=== PATIENT | male | born 1940 | race Caucasian/White ===

== ENCOUNTER 2016-07-05 13:31 | Inpatient (IN) | payer OTHER, SELFPAY ==
--- NOTE | ~2016-07-05 | CN ---
Consultation Report [facility] [address] [place]. [address] NAME: CELINA CANAS : 40 STATUS : ADM IN PAT#: [id number] AGE: 75 ADM/REG DATE : 07/05/16 MR#: [id number] REPORT SERV DATE: 07/05/16 DICTATED BY: LAILA PARRA DATE: 07/05/16 REPORT STATUS : Draft TRANSCRIBED BY: MODL DATE: 07/05/16 MEDICAL CONSULTATION NOTE DATE OF CONSULTATION: 07/05/2016 REASON FOR CONSULTATION: Diabetes, uncontrolled. HISTORY OF PRESENT ILLNESS: This is a 75-year-old white male, who has had over 10 years of insulin experience with Dr. Gal Begum, primary care physician. He had blood sugars that were in the 250 to 300 range previously, but recently has been controlled and that were in 94, 106, and 130 range with the addition of Toujeo by Dr. Begum. He has a left diabetic foot ulcer. He has been [facility] by Dr. Tony Elder. He is now being admitted with osteomyelitis and left foot ulcer with planned surgery on that left side after initial treatment with antibiotics. He has some difficulty feeling in his feet, but it is improved with better blood sugar control over the last six months. He has had no heart history, that he sees Dr. Salguero and was on multiple medications in the past. PAST MEDICAL HISTORY: Longstanding history of diabetes. HOME MEDICATIONS: Include the following: Spironolactone 50 mg p.o. b.i.d., Cozaar 100 mg p.o. daily, Zoloft 100 mg p.o. daily, hydrochlorothiazide 50 mg p.o. daily, aspirin 81 mg p.o. daily, potassium 10 mEq p.o. daily, omeprazole 40 p.o. daily, glipizide 10 mg p.o. daily, sertraline 100 mg p.o. daily, oxycodone, Amitiza, Ambien. He does have a history of chronic kidney disease. No laboratory work has been drawn yet after admission. SOCIAL HISTORY: He is , second marriage, lives with present . No alcohol or tobacco. He had attended [facility] in the past. Lives in [place]. 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 He grew up in [place], [place]. FAMILY HISTORY: He has two children alive and well. He had 6 brothers and sisters. One sister with diabetes. His father had diabetes in his old age above 70. REVIEW OF SYSTEMS: He has had no chest pain or shortness of breath. No fever, chills, night sweats, melena, hematemesis, nausea, vomiting, or diarrhea. Consultation Report [facility] [address] [place]. [address] NAME: CELINA CANAS : 40 STATUS : ADM IN PAT#: [id number] AGE: 75 ADM/REG DATE : 07/05/16 MR#: [id number] REPORT SERV DATE: 07/05/16 DICTATED BY: LAILA PARRA DATE: 07/05/16 REPORT STATUS : Draft TRANSCRIBED BY: VIANCA DATE: 07/05/16 He has left foot ulcers worsening and now apparently has some osteomyelitis left foot according to Dr. Elder's examination. The remainder of the review of systems are negative. PHYSICAL EXAMINATION: VITAL SIGNS: Blood pressure was 140/70 with a heart rate 88, respiratory rate 16, afebrile. HEENT: EOMI. Sclerae clear. Conjunctivae pink. NECK: No bruit. No JVD. CHEST: Clear. HEART: Regular S1, S2 without murmur, gallop, or click. ABDOMEN: Obese, protuberant nontender. Bowel sounds positive. EXTREMITIES: Have 2+ pitting edema bilaterally. No distal pulses are palpable at the dorsalis pedis and posterior tibial. The left foot has warmth in the lateral half of it along with draining ulcer on the left side with serosanguineous drainage from the open wound. SKIN: Redness of the left foot. LYMPHATICS: There is no adenopathy palpable. LABORATORY: Laboratory has been ordered but is not available yet. ASSESSMENT: 1. Diabetes type 2, uncontrolled. The patient does have some significant insulin resistance. He has had been on Toujeo 330 units subcu b.i.d., has been cut back to once a day with his weight loss recently. He is also on Humalog 5 units before each meals t.i.d. to bring blood sugar down to present level. At present blood sugar checks at 68 and has not eaten since breakfast. We will go ahead and feed right now. 2. Diabetic foot ulcer, left side. 3. Osteomyelitis. 4. Chronic kidney disease. We will check a BMP. 5. Obesity. 6. Question compliance with diet. The patient does have evidence of obesity, but he is losing some weight according to the daughter. We will see if we can control with less insulin, we will try to drop Levemir to 100 units subcu daily, and use Humalog before each meals to control blood sugar holding if the blood sugars too low or the patient is n.p.o. 7. Dr. Elder started the other medication back for his depression, hypertension, Gastroesophageal reflux disease. I will hold the glipizide for now and we may need to adjust the oral anti-hypoglycemic agents. I will discontinue the glipizide for now and use insulin alone. DB/QASIML Consultation Report [address] [place]. [address] NAME: CELINA CANAS : 40 STATUS : ADM IN PAT#: [id number] AGE: 75 ADM/REG DATE : 07/05/16 MR#: [id number] REPORT SERV DATE: 07/05/16 DICTATED BY: LAILA PARRA DATE: 07/05/16 REPORT STATUS : Draft TRANSCRIBED BY: MODL DATE: 07/05/16 Laila Parra M.D. / [id number] CC: Lourdes Mandujano M.D. James Hoback Jr., M.D. Richard L Yap, M.D. Cristina Florea, M.D.
--- NOTE | ~2016-07-05 | DS ---
Discharge Summary [facility] [address] [place]. [address] NAME: CELINA CANAS : 40 STATUS : DIS IN PAT#: [id number] AGE: 75 ADM/REG DATE : 07/05/16 MR#: [id number] REPORT SERV DATE: 07/22/16 DICTATED BY: TONY JOHNSON DATE: 07/21/16 REPORT STATUS : Draft TRANSCRIBED BY: VIANCA DATE: 07/21/16 Data Collection from hospitalization DISCHARGE DIAGNOSES: 1. Left fifth toe diabetic foot ulcer with cellulitis and osteomyelitis. 2. Type 2 insulin-dependent diabetes with foot ulcer. 3. 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 4. Hypertension. 5. Obstructive sleep apnea. 6. Chronic obstructive pulmonary disease. 7. Morbid obesity. 8. Anemia. 9. Gastroesophageal reflux disease. 10.Neuropathy. 11.Chronic pain. CONSULTATIONS: Dr. Jose Jc. Dr. Moises Bunn. PROCEDURES: Left yyfea-ual-aivv amputation, 07/08/2016. PATHOLOGY: Left leg below-knee amputation-skin and soft tissue, acute and chronic inflammation with abscess formation. Bone-acute osteomyelitis. Arteries (tibioperoneal) occlusive atherosclerosis. DISCHARGE MEDICATIONS: Vitamin C 1000 mg every morning, aspirin 81 mg daily, Lipitor 40 mg at bedtime, vitamin B12 100 mcg daily, ferrous sulfate 325 mg daily, hydrochlorothiazide 25 mg daily, Toujeo as instructed, NovoLog injection insulin 15 units subcutaneously three times a day, Cozaar 100 mg daily, fish oil 2000 mg daily, Singulair 10 mg at bedtime, Prilosec 40 mg every morning, Klor-Con 20 mEq daily, Senokot 8.6 mg every morning, Zoloft 100 mg daily and 50 mg at bedtime, Roxicodone 10 mg as instructed, Levemir 32 units subcutaneously daily, ProAir two puffs via inhaler as needed, Tagamet 200 mg twice a day as needed, Zofran 4-8 mg every eight hours as needed, Percocet 10/325 one tablet four times a day as needed, Refresh one drop daily as needed, Aldactone 50 mg daily, Ativan 0.5 mg at bedtime, Glucotrol 10 mg twice a day. CONDITION ON DISCHARGE: Stable. DISPOSITION: The patient was discharged to [facility] on an 1800-calorie diabetic diet with activities as instructed. He would follow up with me at the [facility], 07/16/2016. HOSPITAL COURSE: This is a 75-year-old man, who presented with a history of left lateral fifth metatarsal head diabetic foot ulcer since the end of 2015. He had been admitted on 05/23/2016 with cellulitis and this was debrided at the bedside. At that time, his hemoglobin A1c was 7.3. He has a history of uncontrolled type 2 diabetes mellitus, obstructive sleep apnea with CPAP and stage 3 chronic kidney disease. He is morbidly obese and has hypertension. He had undergone IV antibiotics as an outpatient in the [facility]. He was found to have involvement of the deep tissues and then referred for cardiology Discharge Summary [address] [address] NAME: CELINA CANAS : 40 STATUS : DIS IN PAT#: [id number] AGE: 75 ADM/REG DATE : 07/05/16 MR#: [id number] REPORT SERV DATE: 07/22/16 DICTATED BY: TONY JOHNSON DATE: 07/21/16 REPORT STATUS : Draft TRANSCRIBED BY: VIANCA DATE: 07/21/16 evaluation for possible hyperbaric oxygen and was deemed not medically fit from a cardiac standpoint. On evaluation in the clinic, the patient was found to have increasing redness of his foot. Upon debridement, he was found to have a large amount of necrotic bone on the fifth metatarsal distally. It was excised sharply with rongeurs and scissors. Bone culture and histology were obtained. The patient was found to have MRSA and cultures in the past. The possible need for lfgxd-hpy-qhxs amputation was discussed with the patient. He was admitted to the hospital at this time for further evaluation and treatment. Upon admission, IV antibiotics were started. He was seen in consultation by Dr. Jose Jc regarding his uncontrolled diabetes. He has had diabetes for over 10 years. He has a left diabetic foot ulcer. He had had some difficulty feeling his feet, but it had improved with better blood sugar control over the last six months. The patient does have some significant insulin resistance. He had been on Toujeo. He was also on Humalog. We questioned compliance with his diet as he does have evidence of obesity, but he was losing some weight according to his daughter. Glipizide was discontinued for now. We were going to use insulin alone. He was seen by Dr. Moises Bunn for evaluation and treatment of diabetic foot infection. The patient had been wearing an Unna boot. The patient has diabetic foot infection stemming from a chronic ulcer. It was likely all soft tissue once again. Since if there was osteomyelitis, he would have expected that to have cleared up before now. He felt this could be the same organism from May 2016, but almost certainly it would be polymicrobial. He was going to follow up the cultures that were obtained earlier in the day. He felt this would be a reliable culture. He would be covered empirically with vancomycin and Zosyn pending those cultures. Following day, he had no new complaints. His white count had decreased to 11.5. IV antibiotics were continued. Plans were being made to proceed with surgical intervention. He said he felt weak and tired. He does have a history of chronic pain syndrome. Wound culture had revealed MRSA and diphtheroids. Blood cultures were negative. Plans were being made to proceed with amputation. On 07/08/2016, he was taken to the operating room, where he underwent the above mentioned procedure. He tolerated this well and there were no complications. On postop day #1, the patient reported as pain being a 6-7/10. He had had a restless night. He was on the PHARMACY SPECIALIST. Lovenox was being given for DVT prophylaxis. Proton pump inhibitor was continued. Creatinine level was stable. Blood cultures remained negative. White count was 11. He was evaluated by Occupational and Physical Therapy. On postop day 2, his dressings were intact. Postoperative pain was controlled. Over the next couple of days, he continued to progress. Discharge planning was performed. Lovenox was held. His dressings were changed. On 07/13/2016, he had no new complaints. He was tolerating oral intake. He remained afebrile. Discharge instructions were given. Due to his improved and stable condition, he was discharged to [facility] with the above-stated instructions. Information collected by: Kirstin Nunez I submit the above information as my discharge summary. MILLIE/VIANCA Discharge Summary [address] [place]. [address] NAME: CELINA CANAS : 40 STATUS : DIS IN PAT#: [id number] AGE: 75 ADM/REG DATE : 07/05/16 MR#: [id number] REPORT SERV DATE: 07/22/16 DICTATED BY: TONY JOHNSON DATE: 07/21/16 REPORT STATUS : Draft TRANSCRIBED BY: MODL DATE: 07/21/16 Tony Johnson M.D. / [id number] CC: Lourdes Mandujano M.D. Mark Anderson, M.D. [facility]
--- NOTE | ~2016-07-05 | CN ---
Consultation Report [facility] [address] [place]. [address] NAME: CELINA CANAS : 40 STATUS : ADM IN [facility]#: [id number] AGE: 75 ADM/REG DATE : 07/05/16 MR#: [id number] REPORT SERV DATE: 07/05/16 DICTATED BY: NAIF BRUCE DATE: 07/05/16 REPORT STATUS : Draft TRANSCRIBED BY: MODL DATE: 07/05/16 INFECTIOUS DISEASE CONSULT DATE OF CONSULTATION: REASON FOR REFERRAL: Evaluation and treatment of diabetic foot infection. HISTORY OF PRESENT ILLNESS: The patient is a 75-year-old male. He has a history of hypertension, diabetes mellitus, peripheral neuropathy in his lower extremities, obstructive sleep apnea, gastroesophageal reflux disease. He was admitted here in 05/[address] [facility] on 05/23/2016. He was evaluated by Dr. Elder. An MRI showed no evidence of osteomyelitis, so a bedside debridement was done. He was treated at that time using vancomycin and Zosyn. After debridement, he was stable to go home on oral antibiotics and with cultures pending was sent home on Augmentin. In reviewing those cultures, it appears they grew methicillin-resistant Staph aureus and Pseudomonas to which the Augmentin of course would not work. The patient states so that his foot got better after the debridement. He has been followed by Dr. Elder in the clinic since then and the wound improved, began closing, and was improving. Overall, he had been wearing an Unna boot on it, and when that was taken off earlier today though, he had new redness, swelling, warmth, and signs of rapidly advancing infection. He has not felt well the last couple of days, but had no jonathan fevers or chills. He denies any trauma to the wound other than what it has been done in the [facility], and there have been no new environmental exposures. He has not been on any antibiotics since the end of 05/2016. PAST MEDICAL HISTORY: Otherwise unremarkable. MEDICATIONS: As mentioned above. ALLERGIES: HE HAS NO KNOWN ANTIMICROBIAL ALLERGIES. 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 Does not smoke, has no history of alcohol or substance abuse. He is and his and daughter are in the room with him. FAMILY HISTORY: Noncontributory. PHYSICAL EXAMINATION: GENERAL: A tired-appearing, elderly male, in no acute distress. He is alert and oriented x3. VITAL SIGNS: His temperature here and other vital signs are pending and not recorded yet. His weight is 114 kg. HEENT: Sclerae clear. No oral lesions. NECK: Supple. LUNGS: Clear anteriorly. HEART: Regular rate and rhythm. Consultation Report [facility] [address] [address] NAME: CELINA CANAS : 40 STATUS : ADM IN [facility]#: [id number] AGE: 75 ADM/REG DATE : 07/05/16 MR#: [id number] REPORT SERV DATE: 07/05/16 DICTATED BY: NAIF BRUCE DATE: 07/05/16 REPORT STATUS : Draft TRANSCRIBED BY: VIANCA DATE: 07/05/16 ABDOMEN: Soft, nontender. Positive bowel sounds. EXTREMITIES: The extremity exam, nothing acute on the right. On the left, it is red, all stemming from an eschar ulcer that is 2 to 3 cm x 1 cm under his fifth metatarsal head with redness extending up to the ankle. There is warmth. There is no purulent drainage or odor. LABORATORY DATA: Laboratories are just now being drawn. IMPRESSION: Diabetic foot infection stemming from a chronic ulcer. It is likely all soft tissue once again since if there was osteomyelitis I would have expected that to have flared up before now. They could be the same organisms from 05/2016, but almost certainly it is polymicrobial. RECOMMENDATIONS: 1. We will follow up the cultures that were sent earlier today. This is a bone culture done off antibiotics by Dr. Elder, so it should be a reliable culture. 2. Cover empirically with vancomycin and Zosyn pending those cultures. 3. Surgery per Dr. Elder. 4. I will follow the patient with you. I appreciate very much your consulting on this patient. DIPESH/VIANCA Naif Bruce M.D. / [id number] CC: Lourdes Mandujano M.D.
--- NOTE | ~2016-07-05 | OP ---
Record Of Operation [facility] [address] [place]. [address] NAME: CELINA CANAS : 40 STATUS : ADM IN PAT#: [id number] AGE: 75 ADM/REG DATE : 07/05/16 MR#: [id number] REPORT SERV DATE: 07/08/16 DICTATED BY: TONY JOHNSON DATE: 07/08/16 REPORT STATUS : Draft TRANSCRIBED BY: MODL DATE: 07/08/16 DATE OF PROCEDURE: 07/08/2016 PREOPERATIVE DIAGNOSES: 1. Left lateral fifth metatarsal head diabetic foot ulcer with cellulitis and osteomyelitis with failure of outpatient therapy. 2. Diabetes mellitus type 2 insulin dependent with foot ulcer. 3. Chronic obstructive pulmonary disease. 4. Chronic kidney disease, stage 2/3. 5. Morbid obesity. 6. Obstructive sleep apnea with continuous positive airway pressure. POSTOPERATIVE DIAGNOSES: 1. Left lateral fifth metatarsal head diabetic foot ulcer with cellulitis and osteomyelitis with failure of outpatient therapy. 2. Diabetes mellitus type 2 insulin dependent with foot ulcer. 3. Chronic obstructive pulmonary disease. 4. Chronic kidney disease, stage 2/3. 5. Morbid obesity. 6. Obstructive sleep apnea with continuous positive airway pressure. PROCEDURE: Left bgjdp-oep-dyrv amputation. ANESTHESIA: General. SURGEON: Tony Johnson M.D. HEAD INSPECTOR AND CENTER MARKER: Scott. COMPLICATIONS: None. DRAINS: None. ESTIMATED BLOOD LOSS: 50 mL. FINDINGS: The patient was noted to have a left lateral fifth metatarsal head diabetic foot ulcer with extension proximally to the proximal fifth metatarsal head with persistent erythema and edema of the left forefoot and 2+ pitting edema of the ankle. In light of the preoperative findings with comorbidities, the decision was made to proceed with a left below the-knee amputation. OPERATIVE TECHNIQUE: The patient was brought to the operating room and placed on the table in supine position. He had preoperative IV antibiotics. He had sequential hose in place. He voided prior to the procedure. He underwent general endotracheal anesthesia and was prepped and draped in a sterile fashion and time-out was completed. The patient had his leg elevated and a tourniquet was inflated to 350 mmHg. The tourniquet time was 25 minutes. Record Of Operation [facility] [address] [place]. [address] NAME: CELINA CANAS : 40 STATUS : ADM IN PAT#: [id number] AGE: 75 ADM/REG DATE : 07/05/16 MR#: [id number] REPORT SERV DATE: 07/08/16 DICTATED BY: TONY JOHNSON DATE: 07/08/16 REPORT STATUS : Draft TRANSCRIBED BY: VIANCA DATE: 07/08/16 The incision was then made with proposed skin incision site for a 12 cm bone length from the tibial tuberosity. The incision was made after being marked with a long posterior flap with a 15 blade knife. The incisions were made circumferentially deep into the subcutaneous tissue. Electrocautery was then used to dissect circumferentially to the level of fascia. The posterior flap was then created preserving the gastrocs and soleus muscles on the left posterior leg along with the skin flap posteriorly. The rest of the leg muscle was divided using electrocautery with the named vessels as they were encountered being clamped, divided, and ligated. The nerves were cut on stretch prior to tying the vasculature. The entire soft tissue was excised and Gigli saw was then used to divide the tibia and then the fibula approximately 1 cm proximal. The saw was used to bevel the anterior edge of the tibia and the rasp was used to smooth out the rest of the bone edges circumferentially on the tibia and fibula. The leg was then thoroughly irrigated. The posterior flap was then secured to the anterior fascia covering the bone with interrupted 2-0 Vicryl sutures. The subcutaneous tissues were then reapproximated using interrupted 2-0 Vicryl sutures. The skin edges were reapproximated using a running 2-0 subcuticular Monocryl sutures. Aquacel Ag surgical dressing followed by Kerlix wrap and Sagar wrap was then applied. He tolerated the procedure well and was extubated and taken to the recovery room in stable condition. All sponge and needle counts were reported correct. YVONNE/VIANCA Tony Johnson M.D. / [id number] CC: Lourdes Mandujano M.D.
[~2016-07-05 13:31] MED LIST: ACTOS45 PO; ADALAT CC60 MG PO; AMB5 PO; AMITIZA24 PO; ASAB PO; ATEN50 PO; ATV.5 PO; ATV1 PO; AUG875 PO; AVAPRO300 MG PO; B12100T PO; BEN25; BIST PO; COZAAR100 MG PO; DEMA100 PO; EXCEDRIN EXTRA1 EACH PO; FERROUS SULF325 M1 PO; FISH-EPA1000 MG PO; GLUCOTRO10 PO; GLUCOV5 PO; HUMULIN R1 ML SC; HYDROCHLOROT50 MG PO; IRON325 MG PO; KLOR-CON M2020 MEQ PO; LIPITOR40 PO; PENICILLN VK500 MG PO; PERCOCET1 TA2 PO; PHENADOZ12.5 MG RE; PRAVACHOL40 MG PO; PRILOSEC40 MG PO; REFRES1 OPH; SENTAB PO; SINGULAIR1 PO; SPIRO25 PO; SPIRO50 PO; TAGAMET 200 MG200 MG PO; TOUJEO SC; VENTOLIN HFA INH; VITC500 PO; WELLXL300 PO; X25 PO; ZAROX2.5B PO; ZOFRAN4 PO; ZOL100 PO; ZOL50 PO
[2016-07-05 16:00] LABS: HEMATOCRIT 36.1 % (40.0-51.0); HEMOGLOBIN 11.6 g/dL (13.6-17.8); MANUAL DIFF YES %; MEAN CORPUS HGB CONC 32.1 g/dL (32.0-36.0); MEAN CORPUSCULAR HEMOGLOB 26.5 pg (26.0-34.0); MEAN CORPUSCULAR VOLUME 82.6 fL (80-100); MEAN PLATELET VOLUME 9.2 fL (9.2-13.0); PLATELET COUNT 439 10/3/uL (150-400); RED CELL COUNT 4.37 10/6/uL (4.7-6.1); WHITE BLOOD CELLS 11.5 10/3/uL (4.5-10.5)
[2016-07-05 16:06] LABS: A/G RATIO 0.6 (0.7-1.9); ALKALINE PHOSPHATASE 80 U/L (45-117); CALCIUM, SERUM 9.5 MG/DL (8.5-10.4); CHLORIDE, SERUM 106 MMOL/L (96-112); CREATININE 1.49 MG/DL (0.70-1.30); GFR AFRICAN AMERICAN 52 ML/MIN (>=60); GFR NON AFRICAN AMERICAN 45 ML/MIN (>=60); GLOBULIN 5.1 G/DL (2.5-4.1); GLUCOSE, SERUM 89 MG/DL (60-99); SGOT(AST) 15 U/L (5-40); SGPT(ALT) 22 U/L (5-65); SODIUM, SERUM 136 MMOL/L (135-148); TOTAL BILIRUBIN 0.3 MG/DL (0-1.2); TOTAL PROTEIN 8.1 G/DL (6.0-8.5)
[2016-07-05 16:10] LABS: BUN (BLOOD UREA NITROGEN) 29 MG/DL (6-23); CO2 (CARBON DIOXIDE) 19 MMOL/L (24-34); POTASSIUM, SERUM 4.7 MMOL/L (3.5-5.3)
[2016-07-05 17:05] LABS: BASOPHILS 3 %; BASOPHILS ABSOLUTE (CALC) 0.35 10/3/uL (0.0-0.16); EOSINOPHILS 4 %; EOSINOPHILS ABSOLUTE (CALC) 0.46 10/3/uL (0.0-0.53); LYMPHOCYTES 9 %; LYMPHOCYTES ABSOLUTE (CALC) 1.04 10/3/uL (0.67-4.30); MONOCYTES 1 %; MONOCYTES ABSOLUTE (CALC) 0.12 10/3/uL (0.21-1.20); NEUTROPHILS ABSOLUTE (CALC) 9.55 10/3/uL (2.02-8.40); PLATELET ESTIMATE SLT INC (ADEQUATE); RBC MORPHOLOGY NORM (NORMAL); SEGMENTED NEUTROPHIL (0) 83 %; TOTAL NUCLEATED CELLS 100
[2016-07-05 19:36] LABS: PROCALCITONIN 0.11 ng/mL (<0.5)
[2016-07-05] MEDS ORDERED: X25 PO (21:41)
[2016-07-05] MEDS ORDERED: VITC500 PO (21:41)
[2016-07-05] MEDS ORDERED: PROAIR HFA INH (21:41)
[2016-07-05] MEDS ORDERED: ASAB PO (21:42)
[2016-07-05] MEDS ORDERED: TAGAMET 200 MG200 MG PO (21:42)
[2016-07-05] MEDS ORDERED: LIPITOR40 PO (21:42)
[2016-07-05] MEDS ORDERED: FERROUS SULF325 M1 PO (21:43)
[2016-07-05] MEDS ORDERED: B12100T PO (21:43)
[2016-07-05] MEDS ORDERED: TOUJEO SC (21:43)
[2016-07-05] MEDS ORDERED: PRILOSEC40 MG PO (21:44)
[2016-07-05] MEDS ORDERED: FISH-EPA1000 MG PO (21:44)
[2016-07-05] MEDS ORDERED: NOVOLOG SC (21:44)
[2016-07-05] MEDS ORDERED: ZOFRAN4 PO (21:45)
[2016-07-05] MEDS ORDERED: KLOR-CON M2020 MEQ PO (21:46)
[2016-07-05] MEDS ORDERED: PERCOCET 10/3251 TAB PO (21:46)
[2016-07-05] MEDS ORDERED: SENTAB PO (21:46)
[2016-07-05] MEDS ORDERED: REFRESH OPH (21:47)
[2016-07-05] MEDS ORDERED: ZOL50 PO (21:47)
[2016-07-05] MEDS ORDERED: ZOL100 PO (21:47)
[2016-07-05] MEDS ORDERED: TOPAMAX25 PO (21:48)
[2016-07-05] MEDS ORDERED: DEMA100 PO (21:48)
[2016-07-05] MEDS ORDERED: *UNABLE1 (21:49)
[2016-07-05] MEDS ORDERED: METOLAZONE 2.5 MG (21:49)
[2016-07-06 07:04] LABS: HEMOGLOBIN 9.9 g/dL (13.6-17.8); MEAN CORPUS HGB CONC 31.7 g/dL (32.0-36.0); MEAN CORPUSCULAR HEMOGLOB 25.6 pg (26.0-34.0); MEAN CORPUSCULAR VOLUME 80.8 fL (80-100); MEAN PLATELET VOLUME 9.1 fL (9.2-13.0); PLATELET COUNT 386 10/3/uL (150-400); RBC DISTRIBUTION WIDTH 15.3 % (12.0-16.0); RED CELL COUNT 3.86 10/6/uL (4.7-6.1); WHITE BLOOD CELLS 8.1 10/3/uL (4.5-10.5)
[2016-07-06 07:05] LABS: HEMATOCRIT 31.2 % (40.0-51.0); MANUAL DIFF YES %
[2016-07-06 07:17] LABS: CALCIUM, SERUM 8.9 MG/DL (8.5-10.4); CHLORIDE, SERUM 105 MMOL/L (96-112); CO2 (CARBON DIOXIDE) 19 MMOL/L (24-34); CREATININE 1.17 MG/DL (0.70-1.30); GFR AFRICAN AMERICAN 70 ML/MIN (>=60); GFR NON AFRICAN AMERICAN 61 ML/MIN (>=60); POTASSIUM, SERUM 4.1 MMOL/L (3.5-5.3); SODIUM, SERUM 138 MMOL/L (135-148)
[2016-07-06 07:19] LABS: BUN (BLOOD UREA NITROGEN) 20 MG/DL (6-23); GLUCOSE, SERUM 126 MG/DL (60-99)
[2016-07-06 07:41] LABS: BASOPHILS 2 %; BASOPHILS ABSOLUTE (CALC) 0.16 10/3/uL (0.0-0.16); EOSINOPHILS 2 %; EOSINOPHILS ABSOLUTE (CALC) 0.16 10/3/uL (0.0-0.53); LYMPHOCYTES 7 %; LYMPHOCYTES ABSOLUTE (CALC) 0.57 10/3/uL (0.67-4.30); MONOCYTES 3 %; MONOCYTES ABSOLUTE (CALC) 0.24 10/3/uL (0.21-1.20); NEUTROPHILS ABSOLUTE (CALC) 6.97 10/3/uL (2.02-8.40); PLATELET ESTIMATE ADQ (ADEQUATE); SEGMENTED NEUTROPHIL (0) 86 %; TOTAL NUCLEATED CELLS 100
[2016-07-06 07:42] LABS: POLYCHROMASIA 1+ (2-5/OIF) (0-1/OIF); TOXIC GRANULATION 1+
[2016-07-06] MEDS ORDERED: SINGULAIR1 PO (18:44)
[2016-07-06] MEDS ORDERED: SPIRO50 PO (18:44)
[2016-07-06] MEDS ORDERED: HYDROCHLOROT50 MG PO (18:44)
[2016-07-06] MEDS ORDERED: ATV.5 PO (18:45)
[2016-07-06] MEDS ORDERED: GLUCOTRO10 PO (18:47)
[2016-07-07 07:17] LABS: CALCIUM, SERUM 8.6 MG/DL (8.5-10.4); CHLORIDE, SERUM 108 MMOL/L (96-112); CO2 (CARBON DIOXIDE) 21 MMOL/L (24-34); GFR AFRICAN AMERICAN 85 ML/MIN (>=60); GFR NON AFRICAN AMERICAN 73 ML/MIN (>=60); POTASSIUM, SERUM 3.9 MMOL/L (3.5-5.3); SODIUM, SERUM 140 MMOL/L (135-148)
[2016-07-07 07:18] LABS: BUN (BLOOD UREA NITROGEN) 14 MG/DL (6-23); GLUCOSE, SERUM 85 MG/DL (60-99)
[2016-07-07 07:29] LABS: BASOPHILS 0.3 %; BASOPHILS ABSOLUTE 0.03 10/3/uL (0.0-0.16); EOSINOPHILS 5.2 %; EOSINOPHILS ABSOLUTE 0.45 10/3/uL (0.0-0.53); HEMATOCRIT 31.7 % (40.0-51.0); IMMATURE GRANULOCYTES 0.7 %; IMMATURE GRANULOCYTES ABSOLUTE 0.06 10/3/uL (0.0-0.11); LYMPHOCYTES 11.7 %; LYMPHOCYTES ABSOLUTE 1.02 10/3/uL (0.67-4.30); MANUAL DIFF NO %; MEAN CORPUS HGB CONC 31.5 g/dL (32.0-36.0); MEAN CORPUSCULAR HEMOGLOB 25.9 pg (26.0-34.0); MEAN CORPUSCULAR VOLUME 82.1 fL (80-100); MEAN PLATELET VOLUME 9.1 fL (9.2-13.0); MONOCYTES 7.1 %; MONOCYTES ABSOLUTE 0.62 10/3/uL (0.21-1.20); NEUTROPHILS ABSOLUTE 6.54 10/3/uL (2.02-8.40); PLATELET COUNT 386 10/3/uL (150-400); RBC DISTRIBUTION WIDTH 15.3 % (12.0-16.0); RED CELL COUNT 3.86 10/6/uL (4.7-6.1); WHITE BLOOD CELLS 8.7 10/3/uL (4.5-10.5)
[2016-07-08 06:14] LABS: BASOPHILS 0.7 %; BASOPHILS ABSOLUTE 0.05 10/3/uL (0.0-0.16); EOSINOPHILS ABSOLUTE 0.43 10/3/uL (0.0-0.53); HEMATOCRIT 32.4 % (40.0-51.0); HEMOGLOBIN 10.4 g/dL (13.6-17.8); IMMATURE GRANULOCYTES 0.8 %; IMMATURE GRANULOCYTES ABSOLUTE 0.06 10/3/uL (0.0-0.11); LYMPHOCYTES 19.8 %; LYMPHOCYTES ABSOLUTE 1.41 10/3/uL (0.67-4.30); MEAN CORPUS HGB CONC 32.1 g/dL (32.0-36.0); MEAN CORPUSCULAR HEMOGLOB 26.6 pg (26.0-34.0); MEAN CORPUSCULAR VOLUME 82.9 fL (80-100); MONOCYTES 9.6 %; MONOCYTES ABSOLUTE 0.68 10/3/uL (0.21-1.20); NEUTROPHILS 63.1 %; NEUTROPHILS ABSOLUTE 4.48 10/3/uL (2.02-8.40); PLATELET COUNT 368 10/3/uL (150-400); RBC DISTRIBUTION WIDTH 15.3 % (12.0-16.0); RED CELL COUNT 3.91 10/6/uL (4.7-6.1); WHITE BLOOD CELLS 7.1 10/3/uL (4.5-10.5)
[2016-07-08 06:16] LABS: MANUAL DIFF NO %
[2016-07-08 06:28] LABS: BUN (BLOOD UREA NITROGEN) 15 MG/DL (6-23); CALCIUM, SERUM 8.6 MG/DL (8.5-10.4); CHLORIDE, SERUM 108 MMOL/L (96-112); CO2 (CARBON DIOXIDE) 22 MMOL/L (24-34); CREATININE 1.15 MG/DL (0.70-1.30); GFR AFRICAN AMERICAN 72 ML/MIN (>=60); GFR NON AFRICAN AMERICAN 62 ML/MIN (>=60); GLUCOSE, SERUM 93 MG/DL (60-99); POTASSIUM, SERUM 3.9 MMOL/L (3.5-5.3); SODIUM, SERUM 139 MMOL/L (135-148)
[2016-07-09 07:16] LABS: BASOPHILS 0.1 %; BASOPHILS ABSOLUTE 0.01 10/3/uL (0.0-0.16); EOSINOPHILS 2.5 %; EOSINOPHILS ABSOLUTE 0.28 10/3/uL (0.0-0.53); HEMATOCRIT 31.9 % (40.0-51.0); HEMOGLOBIN 10.2 g/dL (13.6-17.8); IMMATURE GRANULOCYTES 0.4 %; IMMATURE GRANULOCYTES ABSOLUTE 0.04 10/3/uL (0.0-0.11); LYMPHOCYTES 8.4 %; LYMPHOCYTES ABSOLUTE 0.92 10/3/uL (0.67-4.30); MEAN CORPUSCULAR HEMOGLOB 26.3 pg (26.0-34.0); MEAN CORPUSCULAR VOLUME 82.2 fL (80-100); MEAN PLATELET VOLUME 8.9 fL (9.2-13.0); MONOCYTES 7.2 %; MONOCYTES ABSOLUTE 0.79 10/3/uL (0.21-1.20); NEUTROPHILS 81.4 %; NEUTROPHILS ABSOLUTE 8.97 10/3/uL (2.02-8.40); PLATELET COUNT 374 10/3/uL (150-400); RED CELL COUNT 3.88 10/6/uL (4.7-6.1)
[2016-07-09 07:18] LABS: MANUAL DIFF NO %
[2016-07-09 07:24] LABS: CALCIUM, SERUM 8.3 MG/DL (8.5-10.4); CHLORIDE, SERUM 105 MMOL/L (96-112); CO2 (CARBON DIOXIDE) 21 MMOL/L (24-34); CREATININE 1.08 MG/DL (0.70-1.30); GFR AFRICAN AMERICAN 77 ML/MIN (>=60); GFR NON AFRICAN AMERICAN 67 ML/MIN (>=60); GLUCOSE, SERUM 154 MG/DL (60-99); POTASSIUM, SERUM 4.2 MMOL/L (3.5-5.3); SODIUM, SERUM 138 MMOL/L (135-148)
[2016-07-09 07:34] LABS: BUN (BLOOD UREA NITROGEN) 12 MG/DL (6-23)
[2016-07-10 07:06] LABS: BASOPHILS 0.2 %; BASOPHILS ABSOLUTE 0.02 10/3/uL (0.0-0.16); EOSINOPHILS 4.1 %; EOSINOPHILS ABSOLUTE 0.37 10/3/uL (0.0-0.53); HEMATOCRIT 30.1 % (40.0-51.0); HEMOGLOBIN 9.6 g/dL (13.6-17.8); IMMATURE GRANULOCYTES 0.8 %; IMMATURE GRANULOCYTES ABSOLUTE 0.07 10/3/uL (0.0-0.11); LYMPHOCYTES 11.3 %; LYMPHOCYTES ABSOLUTE 1.03 10/3/uL (0.67-4.30); MANUAL DIFF NO %; MEAN CORPUS HGB CONC 31.9 g/dL (32.0-36.0); MEAN CORPUSCULAR HEMOGLOB 26.2 pg (26.0-34.0); MEAN PLATELET VOLUME 9.2 fL (9.2-13.0); MONOCYTES 9.7 %; MONOCYTES ABSOLUTE 0.88 10/3/uL (0.21-1.20); NEUTROPHILS 73.9 %; NEUTROPHILS ABSOLUTE 6.73 10/3/uL (2.02-8.40); PLATELET COUNT 358 10/3/uL (150-400); RBC DISTRIBUTION WIDTH 14.9 % (12.0-16.0); RED CELL COUNT 3.67 10/6/uL (4.7-6.1); WHITE BLOOD CELLS 9.1 10/3/uL (4.5-10.5)
[2016-07-10 07:17] LABS: BUN (BLOOD UREA NITROGEN) 11 MG/DL (6-23); CALCIUM, SERUM 8.4 MG/DL (8.5-10.4); CHLORIDE, SERUM 103 MMOL/L (96-112); CO2 (CARBON DIOXIDE) 24 MMOL/L (24-34); CREATININE 1.04 MG/DL (0.70-1.30); GFR AFRICAN AMERICAN 81 ML/MIN (>=60); GFR NON AFRICAN AMERICAN 70 ML/MIN (>=60); GLUCOSE, SERUM 137 MG/DL (60-99); POTASSIUM, SERUM 3.9 MMOL/L (3.5-5.3); SODIUM, SERUM 137 MMOL/L (135-148)
== END 2016-07-13 16:39 | DRG 617 ==
LOC: 5SO 13:31
PROVIDERS: Internal Medicine; Surgery
PROC: 0Y6J0Z1 Detachment at Left Lower Leg, High, Open Approach (ICD-10-PCS; principal; 2016-07-08 11:30)
DX: E11.621 Type 2 diabetes mellitus with foot ulcer (principal); L03.116 Cellulitis of left lower limb; E11.22 Type 2 diabetes mellitus with diabetic chronic kidney disease; E11.65 Type 2 diabetes mellitus with hyperglycemia; E66.01 Morbid (severe) obesity due to excess calories; M86.672 Other chronic osteomyelitis, left ankle and foot; L97.413 Non-pressure chronic ulcer of right heel and midfoot with necrosis of muscle; I12.9 Hypertensive chronic kidney disease with stage 1 through stage 4 chronic kidney disease, or unspecified chronic kidney disease; J44.9 Chronic obstructive pulmonary disease, unspecified; G47.33 Obstructive sleep apnea (adult) (pediatric); K21.9 Gastro-esophageal reflux disease without esophagitis; F32.9 Major depressive disorder, single episode, unspecified; F41.9 Anxiety disorder, unspecified; G89.4 Chronic pain syndrome; N18.3 Chronic kidney disease, stage 3 (moderate); Z79.82 Long term (current) use of aspirin; Z79.4 Long term (current) use of insulin; Z68.34 Body mass index [BMI] 34.0-34.9, adult; Z79.899 Other long term (current) drug therapy
CPT/HCPCS: 11044; 71010; 73630-LT; 80048; 80053; 80202; 82962; 83036; 84145; 85025; 87040; 87070; 87077; 87186; 87205; 88307; 88311; 93005; 97162-GP; 97166-GO; 97530-GP; 97535-GO; A9270-GY; G0463; G8978-CL-GP; G8979-CJ-GP; J1170; J2270; J2405; J2543; J2710; J3010; J3370